=== PATIENT | male | born 1950 | race Caucasian/White ===

== ENCOUNTER 2017-12-19 14:44 | Emergency (ER) | payer MEDICARE, MEDICAID ==
--- OUTSIDE RECORDS SUMMARY | 2017-12-19 15:15 | XMS REPORT ---
:1950 External Reference #:[id number] Author Organization [facility] Address [address] [place] [address] Phone [phone] Care Team Providers Name Role Phone Elizabeth Mccormick M.D. Care Team Information Architect In Training Unavailable Elizabeth Mccormick M.D. Primary Care Physician Unavailable Payers Type Date Identification Numbers Payment Provider Subscriber Medicare Primary Policy Number: [id number] Medicare [facility] Roxana Mandeep PayID: [id number] [address] [place] [address] Medicaid Policy Number: [id number] [place] Roxana Mandeep PayID: [id number] [address] [facility] [place] [address] Problems Date Description Provider Status Onset: 11/26/2014 Benign essential hypertension Elizabeth Mccormick M.D. Active Onset: 01/20/2015 Cerebral palsy Elizabeth Mccormick M.D. Active Onset: 01/20/2015 Mental retardation Elizabeth Mccormick M.D. Active Onset: 01/20/2015 Hyperlipidemia Elizabeth Mccormick M.D. Active Onset: 01/20/2015 Osteoarthritis Elizabeth Mccormick M.D. Active Onset: 01/20/2015 H/O: Deep vein thrombosis Elizabeth Mccormick M.D. Active Note: RLE 2011 Onset: 11/26/2015 Essential hypertension Elizabeth Mccormick M.D. Active Onset: 01/09/2016 Subclinical hypothyroidism Elizabeth Mccormick M.D. Active Onset: 03/30/2016 Type 2 diabetes mellitus Elizabeth Mccormick M.D. Active Onset: 11/26/2014 Type II diabetes mellitus uncontrolled Elizabeth Mccormick M.D. Inactive Inactive: 11/22/2017 Onset: 11/26/2014 Anticoagulant Elizabeth Mccormick M.D. Resolved Resolved: 04/16/2015 Family History Date Family Member(s) Problem(s) Comments Father Unknown Mother Unknown lives in skilled nursing Social History Type Date Description Comments Occupation Disabled lives at [facility] Cigarette Use Never Smoked Cigarettes ETOH Use Occasional Smoking Patient has never smoked Allergies, Adverse Reactions, Alerts Date Description Reaction Status Severity Comments 11/26/2014 NKDA active Medications Medication Date Status Form Strength Qnty SIG Indications Ordering Provider Levothyroxine 11/30 Active Tablets 50mcg 30tab 1 by mouth E03.9 Elizabeth Sodium s every day [place], in in the M.D. morning Cyclobenzaprine 02/17 Active Tablets 5mg 60tab one tablet M25.512 Elizabeth HCL s by mouth [place], twice a M.D. day as needed pain in left shoulder/ arm [place]ay 02/17 Active Cream 10-15% 113gm apply M25.512 Lizbet Greaseless sparingly [place], to left [employer] shoulder as needed pain Ibuprofen 04/16 Active Tablets 200mg 2 po q6hrs prn [place], pain/infla M.D. mmation Bismatrol 04/16 Active Suspension 262mg/15M 236ml 10 L milliliter , s by mouth M.D. every 4 hours as needed for upset stomach or diarrhea Aspirin 04/16 Active Tablets 325mg 90tab 1 by mouth Z79.01 s every day [place], [employer] Diabetic in 03/06 Active Syrup 100mg/5ML 200un 1 teaspoon its by mouth [place], every 4 M.D. hours as needed Freestyle 01/29 Active Misc 1Box test every Elizabeth Lanctuesday [place], dx: M.D. 250.00, last visit 03/30/15 dx: e11.9 Freestyle Lite 04 Active Device 1unit test [facility] Blood Glucose s every [place], Monitoring tuesday [employer] System dx:250.00, last visit 01/21/15 Freestyle Lite 04 Active Strips 1Box test once Elizabeth Test a week on [place], tuesday M.D. last visit 05/24/17 dx:e11.9 Metformin HCL Active Tablets 500mg 180ta 1 by mouth bs twice a , day M.D. Glipizide Active Tablets 5mg 90tab 1 tab by s mouth [place], every day M.D. Lisinopril 00/00 Active Tablets 20mg 90tab 1 by mouth Elizabeth /0000 s every day Jeanna Mccormick Acetaminophen 00/00 Active Tablets 325mg 2 by mouth Unknown /0000 every 4 hours as needed for fever >100.8 Baclofen 00/00 Active Tablets 10mg 60tab take 1 Elizabeth /0000 s tablet by mumtaz Mccormick.DDelma twice a day Cane/Aluminum/Ad 06/25 Hx Misc 1unit use as E11.9 Elizabeth just/ s directed Melani Mccormick - Jeanna 03/02 Work Note 05/29 Hx clear to 807.01 return to [place], - work/day M.DDelma 11/2605/29/15 Hearing Test 12/17 Hx perform hearing [place], - evaluation M.DDelma 01/21 Coumadin /00 Hx Tablets 5mg 90tab 1 by mouth Elizabeth /0000 s every day Jaylen Mccormick M.D. 04/16 Hydrocodone-Acet 00 Hx Tablets 5-325mg 20tab 1 every Unknown aminophen /0000 s 4-6 hours - as needed 11/26 Celexa 00/00 Hx Tablets 20mg 15tab take 1 Anat /0000 s tablet by NICK Dean - mouth 02/16 other day Medications Administered in Office Medication Date Status Form Strength Qnty SIG Indications Ordering Provider TB Intradermal Administered Injection Elizabeth Mckeon 015 Jeanna Mccormick Immunizations CPT Code Status Date Vaccine Lot # [id number] Given 09/14/2017 Influenza Vac, Quadriv[place], [place] [id number] Given 05/24/2017 Pneumococcal Conjugate Vacc-13 [id number] Given 10/05/2016 Influenza Vac, Quadrivalent, Slit Virus, Im [id number] Given 09/13/2015 Influenza Vac, Quadrivalent, Slit Virus, Im [id number] Given 10/29/2011 Pneumococcal Immunization [id number] Given 05/28/2010 Tdap Tetanus, W Pertussis Vital Signs Date Vital Result Comment 11/30/2017 BP Systolic 142 mmHg BP Diastolic 76 mmHg Heart Rate 80 /min Respiratory Rate 16 /min Height 68.5 inches 5'8.50" Weight 230.00 lb BMI (Body Mass Index) 34.5 kg/m2 05/24/2017 BP Systolic 142 mmHg BP Diastolic 70 mmHg Heart Rate 96 /min Body Temperature 97.9 F Respiratory Rate 16 /min Height 68.5 inches 5'8.50" Weight 232.38 lb BMI (Body Mass Index) 34.8 kg/m2 04/21/2017 BP Systolic 130 mmHg BP Diastolic 84 mmHg Heart Rate 106 /min Body Temperature 96.6 F Height 68.5 inches 5'8.50" Weight 230.50 lb BMI (Body Mass Index) 34.5 kg/m2 02/17/2017 BP Systolic 150 mmHg BP Diastolic 88 mmHg Heart Rate 104 /min Body Temperature 97.7 F Height 68.5 inches 5'8.50" Weight 230.50 lb BMI (Body Mass Index) 34.5 kg/m2 10/05/2016 BP Systolic 130 mmHg BP Diastolic 80 mmHg Heart Rate 84 /min Body Temperature 98.2 F Respiratory Rate 20 /min Height 68.5 inches 5'8.50" Weight 228.00 lb BMI (Body Mass Index) 34.2 kg/m2 07/29/2016 BP Systolic 120 mmHg BP Diastolic 80 mmHg Heart Rate 84 /min Body Temperature 98.0 F Respiratory Rate 18 /min Height 68.5 inches 5'8.50" Weight 219.00 lb BMI (Body Mass Index) 32.8 kg/m2 05/03/2016 BP Systolic 124 mmHg BP Diastolic 80 mmHg Heart Rate 88 /min Body Temperature 97.9 F Respiratory Rate 16 /min Height 68.5 inches 5'8.50" Weight 219.00 lb BMI (Body Mass Index) 32.8 kg/m2 03/30/2016 BP Systolic 124 mmHg BP Diastolic 82 mmHg Heart Rate 96 /min Body Temperature 98.8 F Respiratory Rate 18 /min Height 68.5 inches 5'8.50" Weight 216.12 lb BMI (Body Mass Index) 32.4 kg/m2 03/02/2016 BP Systolic 120 mmHg BP Diastolic 60 mmHg Heart Rate 104 /min Body Temperature 97.7 F Height 68.5 inches 5'8.50" Weight 220.00 lb BMI (Body Mass Index) 33.0 kg/m2 11/26/2015 BP Systolic 128 mmHg BP Diastolic 74 mmHg Heart Rate 96 /min Body Temperature 97.7 F Respiratory Rate 16 /min Height 68.5 inches 5'8.50" Weight 222.12 lb BMI (Body Mass Index) 33.3 kg/m2 07/18/2015 BP Systolic 122 mmHg BP Diastolic 80 mmHg Heart Rate 68 /min Body Temperature 97.4 F Respiratory Rate 20 /min Height 68.5 inches 5'8.50" Weight 215.00 lb BMI (Body Mass Index) 32.2 kg/m2 05/29/2015 BP Systolic 128 mmHg BP Diastolic 68 mmHg Heart Rate 80 /min Body Temperature 97.6 F Respiratory Rate 16 /min Height 68.5 inches 5'8.50" Weight 217.00 lb BMI (Body Mass Index) 32.5 kg/m2 05/09/2015 BP Systolic 122 mmHg BP Diastolic 68 mmHg Heart Rate 80 /min Body Temperature 97.2 F Respiratory Rate 16 /min Height 68.5 inches 5'8.50" Weight 220.00 lb BMI (Body Mass Index) 33.0 kg/m2 04/16/2015 BP Systolic 118 mmHg BP Diastolic 64 mmHg Heart Rate 84 /min Body Temperature 97.2 F Respiratory Rate 16 /min Height 68.5 inches 5'8.50" Weight 221.25 lb BMI (Body Mass Index) 33.1 kg/m2 01/21/2015 BP Systolic 130 mmHg BP Diastolic 80 mmHg Heart Rate 76 /min Body Temperature 96.7 F Respiratory Rate 12 /min Height 68.5 inches 5'8.50" Weight 225.00 lb BMI (Body Mass Index) 33.7 kg/m2 11/26/2014 BP Systolic 130 mmHg BP Diastolic 90 mmHg Heart Rate 84 /min Body Temperature 98.1 F Respiratory Rate 12 /min Height 68.5 inches 5'8.50" Weight 233.00 lb BMI (Body Mass Index) 34.9 kg/m2 09/16/1997 BP Systolic 112 mmHg BP Diastolic 72 mmHg Body Temperature 97.0 F Weight 185.00 lb Results Test Date Test Result H/L Range Note Comprehensive Metabolic Prof 11/18/2017 Sodium 142 mEq/L 134-149 Potassium 4.4 mEq/L 3.6-5.5 Chloride 106 mEq/L 94-112 Carbon Dioxide 23 mEq/L 21-32 Glucose 168 mg/dL High 70-105 1 BUN 25 mg/dL 6-26 Creatinine 0.9 mg/dL 0.6-1.4 BUN/Creat Ratio 27.8 CALC 8.0-36.0 Calcium 9.6 mg/dL 8.6-10.2 Total Protein 7.9 g/dL 6.4-8.3 Albumin 4.6 g/dL 3.8-5.5 Globulin 3.3 g/dL 2.0-4.8 A/G Ratio 1.4 CALC 0.6-2.3 Alk. Phosphatase 64 U/L 22-95 Alt (SGPT) 26 U/L 7-35 Ast (Sgot) 21 U/L 5-34 Total Bilirubin 0.6 mg/dL 0.2-1.3 GFR Non- >60 ml/min/1.73m^ >=60 GFR >60 ml/min/1.73m^ >=60 Lipid Profile 11/18/2017 Cholesterol 175 mg/dL 120-200 Triglycerides 103 mg/dL 30-200 HDL Cholesterol 43 mg/dL 30-70 LDL (Calculated) 111 CALC 0-129 VLDL Cholesterol 21 mg/dL 0-50 HDL Risk Factor 4.1 CALC 0.0-4.4 Complete Blood Count 11/18/2017 WBC 7.1 x10^3/UL 3.6-9.6 RBC 4.41 x10^6/UL 3.90-5.70 HGB 13.7 g/dL 12.1-17.2 HCT 41 % 36-50 MCV 92.0 fL 82.2-97.4 MCH 31.1 pg 27.6-33.3 MCHC 33.9 g/dL 33.0-35.5 RDW 13.6 % 11.6-13.7 PLT 310 x10^3/UL 150-400 MPV 8.4 fL 7.4-10.4 Gran # 4.7 x10^3/UL 1.5-7.2 Lymph# 2.0 x10^3/UL 0.7-4.9 [place]# 0.4 x10^3/UL 0.1-0.9 Gran % 65.0 % 42.2-75.2 Lymph % 28.3 % 20.5-51.1 [place]% 6.7 % 1.7-9.3 Laboratory test finding 11/18/2017 Free T4 0.63 ng/dL Low 0.75-1.54 TSH 7.16 mIU/L High 0.50-6.00 Laboratory test finding 11/18/2017 Hemoglobin A1c (Fma) 6.9 % High 4.1- 5.7 Lipid Profile 09/28/2016 Triglycerides 177 mg/dL 2 (Trig/Chol/HDL) Cholesterol 172 mg/dL 3 HDL Cholesterol 40.1 mg/dL 4 LDL Cholesterol 97 mg/dL 5 Laboratory test finding 09/28/2016 TSH (Thyroid Stim 8.41 mcIU/mL High 0.34-5.60 6 Horm) Free T4 (Free Thyroxine) 0.67 ng/dL 0.61-1.12 7 Hemoglobin A1c (Glyco HGB) 6.6 % High Less than 6.0 8 Comp Metabolic Panel 09/28/2016 Sodium 134 mmol/L 133-145 Potassium 4.0 mmol/L 3.5-5.0 Chloride 100 mmol/L Low 101-111 Co2 Carbon Dioxide 29 mmol/L 22-32 Anion Gap 5 mmol/L 2-11 Glucose 127 mg/dL High 70-100 Blood Urea Nitrogen 22 mg/dL 6-24 Creatinine 1.14 mg/dL 0.67-1.17 BUN/Creatinine Ratio 19.3 8-20 Calcium 9.4 mg/dL 8.6-10.3 Total Protein 7.4 g/dL 6.4-8.9 Albumin 4.2 g/dL 3.2-5.2 Globulin 3.2 g/dL 2-4 Albumin/Globulin Ratio 1.3 1-3 Total Bilirubin 0.30 mg/dL 0.2-1.0 Alkaline Phosphatase 63 U/L 34-104 Alt 23 U/L 7-52 Ast 20 U/L 13-39 Egfr Non- 64.7 >60 Egfr 83.2 >60 9 Urine Microalbumin Random 09/28/2016 Urine Creatinine 123.06 mg/dL Ur Microalbumin (mg/L) < 15.0 mg/L Urine Microalbumin/Creatinine TNP ug/mg <31 10 CBC Auto Diff 09/28/2016 White Blood Count 9.3 10^3/uL 3.5-10.8 Red Blood Count 4.47 10^6/uL 4.0-5.4 Hemoglobin 13.6 g/dL Low 14.0-18.0 Hematocrit 41 % Low 42-52 Mean Corpuscular Volume 91 fL 80-94 Mean Corpuscular Hemoglobin 30 pg 27-31 Mean Corpuscular HGB Conc 34 g/dL 31-36 Red Cell Distribution Width 13 % 10.5-15 Platelet Count 279 10^3/uL 150-450 Mean Platelet Volume 9 um3 7.4-10.4 Abs Neutrophils 5.1 10^3/uL 1.5-7.7 Abs Lymphocytes 2.6 10^3/uL 1.0-4.8 Abs Monocytes 1.0 10^3/uL High 0-0.8 Abs Eosinophils 0.4 10^3/uL 0-0.6 Abs Basophils 0.1 10^3/uL 0-0.2 Abs Nucleated RBC 0 10^3/uL Granulocyte % 55.5 % 38-83 Lymphocyte % 28.2 % 25-47 Monocyte % 11.0 % High 1-9 Eosinophil % 4.5 % 0-6 Basophil % 0.8 % 0-2 Nucleated Red Blood Cells % 0 Laboratory test 04/06/2016 Surgical Pathology SEE RESULT BELOW 11 finding Laboratory test 03/24/2016 TSH (Thyroid Stim 4.00 ?IU/mL 0.34-5.60 finding Horm) CBC Electronic-ALL Lab 03/24/2016 White Blood Count 7.1 10^3/uL 3.5-10.8 [facility] Red Blood Count 4.49 10^6/uL 4.0-5.4 Hemoglobin 13.6 g/dL Low 14.0-18.0 Hematocrit 42 % 42-52 Mean Corpuscular Volume 94 fL 80-94 Mean Corpuscular Hemoglobin 30 pg 27-31 Mean Corpuscular HGB Conc 32 g/dL 31-36 Red Cell Distribution Width 13 % 10.5-15 Platelet Count 330 10^3/uL 150-450 Mean Platelet Volume 9 um3 7.4-10.4 Abs Neutrophils 3.2 10^3/uL 1.5-7.7 Abs Lymphocytes 2.5 10^3/uL 1.0-4.8 Abs Monocytes 0.7 10^3/uL 0-0.8 Abs Eosinophils 0.6 10^3/uL 0-0.6 Abs Basophils 0.1 10^3/uL 0-0.2 Abs Nucleated RBC 0 10^3/uL Granulocyte % 45.5 % 38-83 Lymphocyte % 34.4 % 25-47 Monocyte % 9.9 % High 1-9 Eosinophil % 8.9 % High 0-6 Basophil % 1.3 % 0-2 Nucleated Red Blood Cells % 0 Laboratory test 03/24/2016 Hemoglobin A1c 6.5 % High Less than 6.0 12 finding (Glyco HGB) Comp Metabolic-ALL 03/24/2016 Sodium 136 mmol/L 133-145 Lab [facility] Potassium 4.2 mmol/L 3.5-5.0 Chloride 101 mmol/L 101-111 Co2 Carbon Dioxide 28 mmol/L 22-32 Anion Gap 7 mmol/L 2-11 Glucose 129 mg/dL High 70-100 Blood Urea Nitrogen 21 mg/dL 6-24 Creatinine 1.04 mg/dL 0.67-1.17 BUN/Creatinine Ratio 20.2 High 8-20 Calcium 9.5 mg/dL 8.6-10.3 Total Protein 7.1 g/dL 6.4-8.9 Albumin 4.1 g/dL 3.2-5.2 Globulin 3.0 g/dL 2-4 Albumin/Globulin Ratio 1.4 1-3 Total Bilirubin 0.60 mg/dL 0.2-1.0 Alkaline Phosphatase 60 U/L 34-104 Alt 20 U/L 7-52 Ast 15 U/L 13-39 Egfr Non- 71.9 >60 Egfr 92.5 >60 13 Laboratory test 02/27/2016 Point of Care Glucose 142 mg/dL High 74-106 14 finding Laboratory test 02/27/2016 Urine Culture And SEE RESULT 15 finding Sensitivities BELOW Laboratory test 01/07/2016 TSH (Thyroid Stim 6.61 ?IU/mL High 0.34-5.60 finding Horm) Free T4 (Free Thyroxine) 0.66 ng/dL 0.61-1.12 Laboratory test 11/13/2015 TSH (Thyroid Stim Horm) 8.15 ?IU/mL High 0.34- 5.60 finding Lipid Panel-ALL Lab 11/13/2015 Triglycerides 89 mg/dL 16 Companies Cholesterol 167 mg/dL 17 HDL Cholesterol 37.6 mg/dL 18 LDL Cholesterol 112 mg/dL 19 Laboratory test 11/13/2015 Hemoglobin A1c 6.7 % High Less than 6.0 20 finding (Glyco HGB) Comp Metabolic-ALL 11/13/2015 Sodium 136 mmol/L 133-145 Lab [facility] Potassium 4.2 mmol/L 3.5-5.0 Chloride 102 mmol/L 101-111 Co2 Carbon Dioxide 28 mmol/L 22-32 Anion Gap 6 mmol/L 2-11 Glucose 98 mg/dL 70-100 Blood Urea Nitrogen 22 mg/dL 6-24 Creatinine 1.02 mg/dL 0.67-1.17 BUN/Creatinine Ratio 21.6 High 8-20 Calcium 9.3 mg/dL 8.6-10.3 Total Protein 7.4 g/dL 6.4-8.9 Albumin 4.3 g/dL 3.2-5.2 Globulin 3.1 g/dL 2-4 Albumin/Globulin Ratio 1.4 1-3 Total Bilirubin 0.40 mg/dL 0.2-1.0 Alkaline Phosphatase 70 U/L 34-104 Alt 18 U/L 7-52 Ast 16 U/L 13-39 Egfr Non- 73.8 >60 Egfr 94.9 >60 21 CBC Electronic-ALL Lab [facility] 11/13/2015 White Blood Count 7.4 10^3/uL 3.5-10.8 Red Blood Count 4.31 10^6/uL 4.0-5.4 Hemoglobin 13.6 g/dL Low 14.0-18.0 Hematocrit 42 % 42-52 Mean Corpuscular Volume 97 fL High 80-94 Mean Corpuscular Hemoglobin 32 pg High 27-31 Mean Corpuscular HGB Conc 33 g/dL 31-36 Red Cell Distribution Width 14 % 10.5-15 Platelet Count 289 10^3/uL 150-450 Mean Platelet Volume 9 um3 7.4-10.4 Abs Neutrophils 3.5 10^3/uL 1.5-7.7 Abs Lymphocytes 2.5 10^3/uL 1.0-4.8 Abs Monocytes 0.9 10^3/uL High 0-0.8 Abs Eosinophils 0.4 10^3/uL 0-0.6 Abs Basophils 0.1 10^3/uL 0-0.2 Abs Nucleated RBC 0.01 10^3/uL Granulocyte % 46.8 % 38-83 Lymphocyte % 34.3 % 25-47 Monocyte % 12.5 % High 1-9 Eosinophil % 5.2 % 0-6 Basophil % 1.2 % 0-2 Nucleated Red Blood Cells % 0.1 Comp Metabolic Panel 05/16/2015 Sodium 136 mmol/L 133-145 Potassium 4.0 mmol/L 3.5-5.0 Chloride 105 mmol/L 101-111 Co2 Carbon Dioxide 25 mmol/L 22-32 Anion Gap 6 mmol/L 2-11 Glucose 119 mg/dL High 70-100 Blood Urea Nitrogen 22 mg/dL 6-24 Creatinine 0.92 mg/dL 0.67-1.17 BUN/Creatinine Ratio 23.9 High 8-20 Calcium 9.4 mg/dL 8.6-10.3 Total Protein 7.5 g/dL 6.4-8.9 Albumin 4.2 g/dL 3.2-5.2 Globulin 3.3 g/dL 2-4 Albumin/Globulin Ratio 1.3 1-3 Total Bilirubin 0.40 mg/dL 0.2-1.0 Alkaline Phosphatase 54 U/L 34-104 Alt 26 U/L 7-52 Ast 20 U/L 13-39 Egfr Non- 83.1 >60 Egfr 106.9 >60 22 Laboratory test finding 05/16/2015 Inr 0.95 0.78-1.07 CBC Electronic-ALL Lab 12/31/2014 White Blood Count 6.5 10^3/uL 4.8-10.8 23 [facility] Red Blood Count 4.25 10^6/uL 4.0-5.4 23 Hemoglobin 13.6 g/dL Low 14.0-18.0 23 Hematocrit 40 % Low 42-52 23 Mean Corpuscular Volume 94 fL 80-94 23 Mean Corpuscular Hemoglobin 32 pg High 27-31 23 Mean Corpuscular HGB Conc 34 g/dL 31-36 23 Red Cell Distribution Width 13 % 10.5-15 23 Platelet Count 249 10^3/uL 150-450 23 Mean Platelet Volume 10 um3 7.4-10.4 23 Abs Neutrophils 3.0 10^3/uL 1.5-7.7 23 Abs Lymphocytes 2.2 10^3/uL 1.0-4.8 23 Abs Monocytes 0.8 10^3/uL 0-0.8 23 Abs Eosinophils 0.4 10^3/uL 0-0.6 23 Abs Basophils 0.1 10^3/uL 0-0.2 23 Abs Nucleated RBC 0 10^3/uL 23 Granulocyte % 46.0 % 38-83 23 Lymphocyte % 34.0 % 25-47 23 Monocyte % 12.7 % High 1-9 23 Eosinophil % 6.3 % High 0-6 23 Basophil % 1.0 % 0-2 23 Nucleated Red Blood Cells % 0.1 23 Laboratory test finding 12/31/2014 Inr 1.84 High 0.78-1.07 23, 24 Comp Metabolic-ALL Lab [facility] 12/31/2014 Sodium 136 mmol/L 133-145 23 Potassium 4.1 mmol/L 3.5-5.0 23 Chloride 106 mmol/L 101-111 23 Co2 Carbon Dioxide 26 mmol/L 22-32 23 Anion Gap 4 mmol/L 2-11 23 Glucose 104 mg/dL High 70-100 23 Blood Urea Nitrogen 15 mg/dL 6-24 23 Creatinine 0.92 mg/dL 0.67-1.17 23 BUN/Creatinine Ratio 16.3 8-20 23 Calcium 9.2 mg/dL 8.6-10.3 23 Total Protein 7.2 g/dL 6.4-8.9 23 Albumin 4.2 g/dL 3.2-5.2 23 Globulin 3.0 g/dL 2-4 23 Albumin/Globulin Ratio 1.4 1-3 23 Total Bilirubin 0.50 mg/dL 0.2-1.0 23 Alkaline Phosphatase 53 U/L 34-104 23 Alt 26 U/L 7-52 23 Ast 20 U/L 13-39 23 Egfr Non- 83.4 >60 23 Egfr 107.2 >60 23, 25 Lipid Panel-ALL [facility] 12/31/2014 Triglycerides 141 mg/dL 23, 26 Cholesterol 170 mg/dL 23, 27 HDL Cholesterol 34.3 mg/dL 23, 28 LDL Cholesterol 108 mg/dL 23, 29 Laboratory test finding 12/31/2014 Hemoglobin A1c 6.3 % High Less than 6.0 23, 30 TSH (Thyroid Stimulating Horm) 4.87 IU/mL 0.34-5.60 23, 31 Ua - Non Micro (CMC) 07/20/1999 Appearance CLEAR SP Grav 1.018 1.010-1.030 Esterase NEGATIVE Negative Nitrite NEGATIVE Negative Urobil NEGATIVE Negative Protein NEGATIVE Negative PH 7.0 5-9 Blood NEGATIVE Negative Ketones NEGATIVE Negative Bilirubin, Micro NEGATIVE Negative Glucose NEGATIVE Negative 1 consistent w/ previous results 2 Desirable <150 Borderline high 150-199 High 200-499 Very High >500 3 Desirable <200 Borderline high 200-239 High >239 4 Low <40 Desirable: 40-60 High: >60 5 Desirable: <100 mg/dL Near Optimal: 100-129 mg/dL Borderline High: 130-159 mg/dL High: 160-189 mg/dL Very High: >189 mg/dL 6 FASTING 7 FASTING 8 Therapeutic target for the treatment of diabetes Mellitus patients is <7% HBA1C, and in selective patients <6.0%.Please refer to [place] [employer] Association Diabetic care guidelines for further information. 9 Because ethnic data is not always readily available, this report includes an eGFR for both -Americans and non- Americans. The National Kidney Disease Education Program (NKDEP) does not endorse the use of the MDRD equation for patients that are not between the ages of 18 and 70, are , have extremes of body size, muscle mass, or nutritional status, or are non- or non-. According to the National Kidney Foundation, irrespective of diagnosis, the stage of the disease is based on the level of kidney function: Stage Description GFR(mL/min/1.73 m(2)) 1 Kidney damage with normal or decreased GFR 90 2 Kidney damage with mild decrease in GFR 60-89 3 Moderate decrease in GFR 30-59 4 Severe decrease in GFR 15-29 5 Kidney failure <15 (or dialysis) 10 Unable to calculate due to low microalbumin 11 SEE RESULT BELOW Name: MANDEEPROXANA Rigoberto : [address]: Ga Peacock MD Acct: [id number] Unit: [id number] AGE: 66 Location: [facility] Re04/06/16 SEX: M Status: REG REF SPEC: [id number] DELFINO: 04/06/16-1253 [facility] DR: Ga Peacock MD REQ: [id number] RECD: 04/06/16 STATUS: JLUIS CABRERA DR: Elizabeth Mccormick MD _ ORDERED: LEVEL IV/3 FINAL DIAGNOSIS 1. Colon, right, biopsy: -- Large intestinal mucosa with no significant pathologic abnormality. -- No evidence of microscopic/lymphocytic colitis, collagenous colitis or other chronic inflammatory bowel process identified. 2. Colon, left, biopsy: -- Large intestinal mucosa with mild architectural disorder suggestive of repair. -- No active colitis or other chronic inflammatory bowel process identified. -- No adenomatous change noted. 3. Colon, rectum at 12 cm, biopsy: -- Tubular adenoma. -- No high grade dysplasia or malignancy. CLINICAL HISTORY No history given POST-OPERATIVE DIAGNOSIS Colonoscopy to cecum with ease - 1-2+ sigmoid diverticulosis; increased haustral changes, all negative except in rectum. Conclusions/Plan: Mild diverticulosis, rectal polyp - fulgurated; follow-up to be determined GROSS DESCRIPTION 1. The specimen is received in formalin labeled, Biopsy Right Colon, and consists of two zavala-white irregular to polypoid soft tissue fragments measuring 0.2 x 0.2 x 0.1 cm and 0.6 x 0.2 x 0.1 cm, which are entirely submitted in one cassette. CONTINUED ON NEXT PAGE * ML=Testing performed at Main Lab DEPARTMENT OF PATHOLOGY, [address] [place] [address] Hari Perez M.D. Director [facility] # [id number] RUN DATE: 04/07/16 [facility] LAB LIVE PAGE 2 Patient: ROXANA GIANG [id number] (Continued) GROSS DESCRIPTION (Continued) GROSS DESCRIPTION (Continued) 2. The specimen is received in formalin labeled, Biopsy Left Colon, and consists of two zavala-white irregular to polypoid soft tissue fragments measuring 0.3 x 0.3 x 0.2 cm and 0.5 x 0.2 x 0.1 cm, which are entirely submitted in one cassette. 3. The specimen is received in formalin labeled, Rectal Polyp at 12 cm, and consists of a 0.9 x 0.6 x 0.3 cm aggregate of zavala-brown irregular to polypoid soft tissue fragments, which is entirely submitted in one cassette. Signed (signature on file) Hari Perez MD [id number] END OF REPORT * ML=Testing performed at Main Lab DEPARTMENT OF PATHOLOGY, [address] [place] [address] Hari Perez M.D. Director [facility] # [id number] 12 Therapeutic target for the treatment of diabetes Mellitus patients is <7% HBA1C, and in selective patients <6.0%.Please refer to [place] [employer] Association Diabetic care guidelines for further information. 13 Because ethnic data is not always readily available, this report includes an eGFR for both -Americans and non- Americans. The National Kidney Disease Education Program (NKDEP) does not endorse the use of the MDRD equation for patients that are not between the ages of 18 and 70, are , have extremes of body size, muscle mass, or nutritional status, or are non- or non-. According to the National Kidney Foundation, irrespective of diagnosis, the stage of the disease is based on the level of kidney function: Stage Description GFR(mL/min/1.73 m(2)) 1 Kidney damage with normal or decreased GFR 90 2 Kidney damage with mild decrease in GFR 60-89 3 Moderate decrease in GFR 30-59 4 Severe decrease in GFR 15-29 5 Kidney failure <15 (or dialysis) 14 [employer] Director: [id number] FRANKLIN SORENSON 15 SEE RESULT BELOW Name: ROXANA GIANG : [address]: Triston Gallego MD Acct: [id number] Unit: [id number] AGE: 66 Location: [facility] Re02/27/16 SEX: M Status: DEP ER SPEC: [id number] DELFINO: 02/27/16-[address]: Triston Gallego MD REQ: [id number] RECD: 02/27/16182 STATUS: COMP [facility] DR: Elizabeth Mccormick MD _ SOURCE: URINE SPDESC: ORDERED: Urine Culture Procedure Result Reported Site Urine Culture Final 02/28/16- 1552 ML No growth of clinically significant organisms * ML - MAIN LAB (PSC1) . END OF REPORT * ML=Testing performed at Main Lab DEPARTMENT OF PATHOLOGY, [address] [place] [address] Hari Perez M.D. Director [facility] # [id number] 16 Desirable <150 Borderline high 150-199 High 200-499 Very High >500 17 Desirable <200 Borderline high 200-239 High >239 18 Low <40 Desirable: 40-60 High: >60 19 Desirable: <100 mg/dL Near Optimal: 100-129 mg/dL Borderline High: 130-159 mg/dL High: 160-189 mg/dL Very High: >189 mg/dL 20 Therapeutic target for the treatment of diabetes Mellitus patients is <7% HBA1C, and in selective patients <6.0%.Please refer to [place] [employer] Diabetic care guidelines for further information. 21 Because ethnic data is not always readily available, this report includes an eGFR for both -Americans and non- Americans. The National Kidney Disease Education Program (NKDEP) does not endorse the use of the MDRD equation for patients that are not between the ages of 18 and 70, are , have extremes of body size, muscle mass, or nutritional status, or are non- or non-. According to the National Kidney Foundation, irrespective of diagnosis, the stage of the disease is based on the level of kidney function: Stage Description GFR(mL/min/1.73 m(2)) 1 Kidney damage with normal or decreased GFR 90 2 Kidney damage with mild decrease in GFR 60-89 3 Moderate decrease in GFR 30-59 4 Severe decrease in GFR 15-29 5 Kidney failure <15 (or dialysis) 22 Because ethnic data is not always readily available, this report includes an eGFR for both -Americans and non- Americans. The National Kidney Disease Education Program (NKDEP) does not endorse the use of the MDRD equation for patients that are not between the ages of 18 and 70, are , have extremes of body size, muscle mass, or nutritional status, or are non- or non-. According to the National Kidney Foundation, irrespective of diagnosis, the stage of the disease is based on the level of kidney function: Stage Description GFR(mL/min/1.73 m(2)) 1 Kidney damage with normal or decreased GFR 90 2 Kidney damage with mild decrease in GFR 60-89 3 Moderate decrease in GFR 30-59 4 Severe decrease in GFR 15-29 5 Kidney failure <15 (or dialysis) 23 FASTING 24 Please note: Effective December 25, 2014, the reference value for this test has changed due to the validation and activation of a new reagent lot number. 25 Because ethnic data is not always readily available, this report includes an eGFR for both -Americans and non- Americans. The National Kidney Disease Education Program (NKDEP) does not endorse the use of the MDRD equation for patients that are not between the ages of 18 and 70, are , have extremes of body size, muscle mass, or nutritional status, or are non- or non-. According to the National Kidney Foundation, irrespective of diagnosis, the stage of the disease is based on the level of kidney function: Stage Description GFR(mL/min/1.73 m(2)) 1 Kidney damage with normal or decreased GFR 90 2 Kidney damage with mild decrease in GFR 60-89 3 Moderate decrease in GFR 30-59 4 Severe decrease in GFR 15-29 5 Kidney failure <15 (or dialysis) 26 Desirable <150 Borderline high 150-199 High 200-499 Very High >500 27 Desirable <200 Borderline high 200-239 High >239 28 Low <40 Desirable: 40-60 High: >60 29 Desirable <100 Near Optimal 100-129 Borderline high 130-159 High 160-189 Very High >189 30 Therapeutic target for the treatment of diabetes Mellitus patients is <7% HBA1C, and in selective patients <6.0%.Please refer to [place] [employer] Diabetic care guidelines for further information. 31 FASTING Procedures Date CPT Code Description Status 04/06/2016 Colonoscopy Completed 06/16/1990 06164 Est Pat Office Comprhensive Completed Encounters Type Date Location Provider CPT E/M Dx Office Visit 04/21/2017 10:15a Main Office SHAUN Hinson 56116 M25.512 M79.602 Office Visit 02/17/2017 10:45a Main Office SHAUN Hinson 76010 M25.512 M79.602 I10 E11.9 Office Visit 10/05/2016 8:00a Main Office Elizabeth Mccormick M.D. 17837 I10 E11.9 E07.89 G80.9 Z23 Office Visit 07/29/2016 11:30a [place] [address] M79.641 Office Visit 05/03/2016 4:30p [place] [address] S50.00xA S80.02xA W01.198A Office Visit 03/02/2016 2:20p Main Office Elizabeth Mccormick M.D. 81783 K52.9 E11.65 I10 Office Visit 11/26/2015 10:20a [facility] Elizabeth Mccormick M.D. 55144 I10 E11.65 E07.89 Z12.11 Office Visit 07/18/2015 11:00a [place] [address] 719.48 Office Visit 05/29/2015 5:00p Main Office Elizabeth Mccormick M.D. 46811 401.1 250.02 807.01 Office Visit 05/09/2015 10:45a [place] [address] 924.20 Office Visit 04/16/2015 1:00p [facility] Office Elizabeth Mccormick M.D. 90334 891.0 E885.9 401.1 V58.61 Office Visit 01/24/2015 10:15a Main Office Elizabeth Mccormick M.D. 74451 V74.1 Office Visit 01/21/2015 9:40a Main Office Elizabeth Mccormick M.D. 07271 250.02 401.1 V58.61 V74.1 525.13 Office Visit 11/26/2014 3:50p Main Office Elizabeth Mccormick M.D. 77666 250.02 401.1 V58.61 724.2 Plan of Care Future Appointment(s):01/13/2018 9:00 am - Elizabeth Mccormick M.D. at [facility] Tuxztj1911/30/2017 - Elizabeth Mccormick M.D.E11.9 Type 2 diabetes mellitus without complicationsNew Labs:Hemoglobin A1c ([facility])TSH ([facility])Free T4 ([facility]/ [facility])Comments:Recommend yearly diabetic eye and foot exams, and check on blood pressure periodically. Goal blood sugar is less than 140 in the morning or A1c less than 7. Increase glipizide to 1 full tab dailyFollow up:6 moI10 Essential (primary) hypertensionComments:The patient will continue to monitor blood pressure and let me know the blood pressure results if there are readings persistently above 140/80. Goal blood pressure is less than 140/80. Recommend low salt/cardiac diet and routine exercise.G80.9 Cerebral palsy, unspecifiedComments[facility] Hypothyroidism, unspecifiedNew Medication:Levothyroxine Sodium 50 mcgNew Labs:TSH ([facility])Free T4 ([facility] /[facility])Comments:start medication in morning before other medicationsFollow up: labs in 6 weeksAllComments:~B_~U_Medication Management~b_~u_ Patient Understands medications he's taking? Yes No Are there Barriers to Adherence? Yes No Has the patient been asked about herbal supplements and therapies, and OTC meds? Yes No
--- NOTE | 2017-12-19 17:17 | ED ---
Throat Pain/Nasal Congestion - HPI Summary HPI Summary: Pt here w/ choking episode earlier today. He resides as [facility]. Staff reports she noticed pt was more quiet than usual and as she looked up at him from her paperwork, he was red in the face and gagging. She "smacked" pt's back and hewas able to expel the pasta he was eating/choking on via coughing in his own. Has had sips of water since and denies pain, dysphagia, chest pain, trouble breathing or SOB. No weakness, numbness or tingling and no previous h/o CVA. He is here at staff reports it's their companies policy to f/u when things like this happen. - History of Current Complaint Chief Complaint: EDGeneral Time Seen by Provider: 12/19/17 15:39 Hx Obtained From: Patient, Family/Cellular Biologist - staff from [facility] - Allergies/Home Medications Allergies/Adverse Reactions: Allergies Allergy/AdvReac Type Severity Reaction Status Date / Time No Known Allergies Allergy Verified 05/26/16 20:25 PMH/Surg Hx/FS Hx/Imm Hx Previously Healthy: Yes Endocrine/Hematology History: Reports: Hx Diabetes - type II Denies: Hx Anticoagulant Therapy, Hx Thyroid Disease Cardiovascular History: Reports: Hx Hypertension Denies: Hx Congestive Heart Failure, Hx Deep Vein Thrombosis, Hx Myocardial Infarction, Hx Pacemaker/ICD Respiratory History: Denies: Hx Asthma, Hx Chronic Obstructive Pulmonary Disease (COPD), Hx Lung Cancer, Hx Pneumonia, Hx Pulmonary Embolism GI History: Denies: Hx Gall Bladder Disease, Hx Gastrointestinal Bleed, Hx Ulcer, Hx Urosepsis History: Denies: Hx Kidney Stones, Hx Renal Disease Neurological History: Denies: Hx CVA, Hx Dementia, Hx Migraine, Hx Seizures, Hx Transient Ischemic Attacks (TIA) Psychiatric History: Reports: Hx Depression - Surgical History Surgery Procedure, Year, and Place: Right Hip Surgery. Right Ankle Surgery Infectious Disease History: No Infectious Disease History: Denies: History Other Infectious Disease, Traveled Outside the [place] in Last 30 Days - Family History Known Family History: Positive: None Negative: Renal Disease, Blood Disorder - Social History Occupation: Disabled Lives: Assisted Alcohol Use: Occasionally - "1 beer here and there" Hx Substance Use: No Substance Use Type: Reports: None Hx Tobacco Use: No Smoking Status (MU): Never Smoked Tobacco Review of Systems Constitutional: Negative Negative: Fever, Chills, Fatigue Eyes: Negative ENT: Negative Negative: Sore Throat Cardiovascular: Negative Respiratory: Negative Gastrointestinal: Negative Positive: no symptoms reported Musculoskeletal: Negative Neurological: Negative Psychological: Normal All Other Systems Reviewed And Are Negative: Yes Physical Exam Triage Information Reviewed: Yes Vital Signs On Initial Exam: Initial Vitals Temp Pulse Resp BP Pulse Ox 97.6 F 102 20 127/73 94 12/19/17 14:54 12/19/17 14:54 12/19/17 14:54 12/19/17 14:54 12/19/17 14:54 Vital Signs Reviewed: Yes Appearance: Positive: Well-Appearing, No Pain Distress, Well-Nourished - pt lying in reclined position on stretcher chatting w/ staff upon entrance - he appears comfortable and pleasant Skin: Positive: Warm, Skin Color Reflects Adequate Perfusion Head/Face: Positive: Normal Head/Face Inspection Eyes: Positive: Other: - wearing glasses ENT: Positive: Hearing grossly normal, Pharynx normal - mucosa moist - no signs of trauma, Other - speaking full sentences w/o difficulty. Negative: Trismus, Muffled voice, Hoarse voice Neck: Positive: Supple, Nontender Respiratory/Lung Sounds: Positive: Clear to Auscultation, Breath Sounds Present , Other - equal chest rise. Negative: Stridor, Wheezes Cardiovascular: Positive: Normal, RRR, Pulses are Symmetrical in both Upper and Lower Extremities Abdomen Description: Positive: Nontender, Soft Bowel Sounds: Positive: Present Musculoskeletal: Positive: Normal, Strength/ROM Intact Neurological: Positive: Normal, Sensory/Motor Intact, Alert, Oriented to Person Place, Time, CN Intact II-III, Facial Symmetry, Speech Normal, Other - appears to have developmental delay - otherwise unremarkable for focal weakness. Negative: Pronator Drift Present Psychiatric: Positive: Normal - calm, coopertive Procedures - Procedure Summary Procedure Summary: Tolerates PO fluids well Diagnostics - Vital Signs Vital Signs Temp Pulse Resp BP Pulse Ox 12/19/17 14:54 97.6 F 102 20 127/73 94 - Laboratory Lab Statement: Any lab studies that have been ordered have been reviewed, and results considered in the medical decision making process. EENT Course/Dx - Course Course Of Treatment: Discussed w/ Dr. Saba. Since pt is not having pain or airway concerns at this time, PO challenged him successfully. Okay to d/c w/o further w/u. Discussed prevention education w/ pt and staff as well as danger ssx of when to return to ED. Paperwork completed for [facility] - Diagnoses Provider Diagnoses: Choking Discharge - Discharge Plan Condition: Stable Disposition: HOME Patient Education Materials: Foreign Body Ingestion (ED) Referrals: Elizabeth Mccormick MD [Primary Care Provider] - Additional Instructions: Take small bites, chew your food well and eat slowly. If food or throat are dry , drink fluids to moisten mouth and throat. *If you develop throat pain, tightness, swelling sensation, trouble breathing or swallowing, chest pain, cough or fever, shortness of breath, numbness, tingling, weakness, facial droop, return to ED
[2017-12-19 17:34] VITALS: BP 134/71
== END 2017-12-19 17:33 | disposition home or self-care (01) ==
LOC: ED 14:44
DX: N39.0 Urinary tract infection, site not specified (principal); R10.84 Generalized abdominal pain
CPT/HCPCS: 99282

== ENCOUNTER 2019-01-07 15:43 | Emergency (ER) | payer MEDICARE, MEDICAID ==
--- NOTE | 2019-01-07 16:24 | UC ---
Hand/Wrist HPI - HPI Summary HPI Summary: PATIENT IS A RESIDENT AT [facility]. HE FELL EARLIER TODAY AND LANDED ON HIS LEFT HAND. LEFT 3RD FINGER IS DEFORMED AND PATIENT HAS TENDERNESS TO PALPATION OVER LEFT 3RD, 4TH AND 5TH FINGERS. - History Of Current Complaint Chief Complaint: UCUpperExtremity Stated Complaint: FINGER INJURY Time Seen by Provider: 01/07/19 16:09 Hx Obtained From: Patient Onset/Duration: Sudden Onset, Lasting Hours, Still Present Severity Initially: Moderate Severity Currently: Moderate Pain Intensity: 8 Pain Scale Used: 0-10 Numeric Character Of Pain: Sharp Aggravating Factor(s): Movement Alleviating Factor(s): Rest, Ice Related History: Dominant Hand Left - Allergies/Home Medications Allergies/Adverse Reactions: Allergies Allergy/AdvReac Type Severity Reaction Status Date / Time No Known Allergies Allergy Verified 01/07/19 16:06 Home Medications: Home Medications Levothyroxine TAB* [Synthroid TAB*] 1 tab PO DAILY 01/07/19 [History Confirmed 01/07/19] PMH/Surg Hx/FS Hx/Imm Hx Endocrine History: Diabetes, Hypothyroidism Cardiovascular History: Hypertension Other History Of: Negative For: HIV, Hepatitis B, Hepatitis C, Anticoagulant Therapy - Surgical History Surgical History: Yes Surgery Procedure, Year, and Place: Right Hip Surgery. Right Ankle Surgery - Family History Known Family History: Positive: None Negative: Renal Disease, Blood Disorder - Social History Alcohol Use: Occasionally Substance Use Type: None Smoking Status (MU): Former Smoker Household Exposure Type: Cigarettes - Immunization History Most Recent Influenza Vaccination: 2014 Most Recent Tetanus Shot: up to date Most Recent Pneumonia Vaccination: has not had Review of Systems All Other Systems Reviewed And Are Negative: Yes Constitutional: Positive: Negative Skin: Positive: Other - ABRASION 4TH FINGER Respiratory: Positive: Negative Cardiovascular: Positive: Negative Gastrointestinal: Positive: Negative Musculoskeletal: Positive: Arthralgia, Decreased ROM - LEFT 3RD-5TH FINGERS, Other: - LEFT 3RD FINGER DEFORMITY Physical Exam Triage Information Reviewed: Yes Appearance: Well-Appearing, No Pain Distress, Well-Nourished Vital Signs: Initial Vital Signs Temp 98.3 F 01/07/19 16:03 Pulse 99 01/07/19 16:03 Resp 16 01/07/19 16:03 BP 146/96 01/07/19 16:03 Pulse Ox 98 01/07/19 16:03 Vital Signs Reviewed: Yes Eyes: Positive: Conjunctiva Clear ENT: Positive: Hearing grossly normal Neck: Positive: Supple Respiratory: Positive: No respiratory distress, No accessory muscle use Cardiovascular: Positive: Pulses Normal Abdomen Description: Positive: Soft Musculoskeletal: Positive: No Edema, ROM Limited @ - LEFT HAND 3RD-5TH FINGERS, Other: - TTP LEFT 3RD-5TH FINGERS. LEFT 3RD FINGER DEVIATED LATERALLY AT PIP Neurological: Positive: Alert Psychological: Positive: Age Appropriate Behavior Skin: Negative: Rashes Diagnostics - Radiology LEFT HAND XRAYS Radiology Interpretation Completed By: Radiologist Summary of Radiographic Findings: DISLOCATION OF THE PROXIMAL INTERPHALANGEAL JOINT OF THE THIRD FINGER AND SMALL FRACTURE FRAGMENT Hand/Wrist Course/Dx - Course Course Of Treatment: RADIOLOGY REPORTS A 3MM FRACTURE FRAGMENT PROJECTING ADJACENT TO THE ANTERIOR LATERAL ASPECT OF THE PROXIMAL PHALANX IN ADDITION TO THE POSTERIORLY DISPLACED MIDDLE PHALANX OF THE LEFT 3RD FINGER. I SPOKE WITH DR. WONG (ORTHOPEDICS) WHO ADVISED I REDUCE IT HERE IN THE AND HAVE PT CALL TOMORROW FOR A F/U APPT. FINGER REDUCTION AFTER DIGITAL BLOCK WAS SUCCESSFUL. RADIOLOGY READ OF POST REDUCTION FILMS PENDING. FINGER SPLINT APPLIED. PT TO CALL [facility]TH[facility]. - Differential Dx/Diagnosis Provider Diagnosis: Dislocation of left middle finger, Abrasion of finger of left hand Discharge - Sign-Out/Discharge Documenting (check all that apply): Patient Departure All imaging exams completed and their final reports reviewed: No - Discharge Plan Condition: Stable Disposition: HOME Patient Education Materials: Finger Dislocation (ED), Abrasion (ED) Referrals: Elizabeth Mccormick MD [Primary Care Provider] - If Needed Ezequiel Wong MD [Medical Doctor] - 3 Days Additional Instructions: YOU DISLOCATED YOUR LEFT THIRD FINGER TODAY. WE SUCCESSFULLY REDUCED IT HERE IN THE . RADIOLOGY REPORTS A SMALL FRACTURE FRAGMENT AT THE AREA OF DISLOCATION. CALL ORTHOPEDICS TOMORROW MORNING FOR FOLLOW-UP APPOINTMENT THIS WEEK. KEEP THE SPLINT ON TO HELP WITH STABILITY. ORTHOPEDICS WILL PROVIDE FURTHER DIRECTION ON HOW LONG YOU WILL NEED TO BE SPLINTED. IBUPROFEN NEEDED FOR DISCOMFORT. REST, ICE, ELEVATE. GIVEN THE SMALL ABRASION ON YOUR 4TH FINGER WE HAVE BOOSTED YOU WITH TDAP. TETANUS IMMUNIZATION GIVEN (TDAP): You have been given an immunization against tetanus. Please record this in your records. In general, a booster is needed only once every 10 years. The tetanus shot protects against tetanus or "lockjaw," which is a complication of certain wound infections (the tetanus shot cannot protect against the actual infection). The immunization site may become warm and red due to local reaction. If this occurs, apply warm compresses and take aspirin or ibuprofen to reduce inflammation and discomfort. Return for evaluation if the reaction becomes severe. - Billing Disposition and Condition Condition: STABLE Disposition: Home
[2019-01-07] MEDS ORDERED: Ibuprofen TAB* 600 MG PO ONE (17:26)
[2019-01-07] MEDS ORDERED: Lidocaine 1%* 5 ML VIAL INJ ONE (17:41)
[2019-01-07] MEDS ORDERED: Tetan/Diph/Pertus SYR(Tdap)* 0.5 ML SYR(BOOSTRIX) use SYR IM ONE (18:51)
[2019-01-07 19:15] VITALS: BP 132/79
--- NOTE | 2019-01-08 19:15 | UC ---
- Progress Note Progress Note: Radiologist reading of left hand and left third finger x-rays from January 07, 2019 show a dislocation with avulsion fracture in the left middle finger on the initial x-ray and then subsequent reduction of the finger on the finger x-ray. Provider the same date had the same interpretation therefore there is no discrepancy. Course/Dx - Diagnoses Provider Diagnoses: Dislocation of left middle finger, Abrasion of finger of left hand Discharge - Sign-Out/Discharge Documenting (check all that apply): Patient Departure All imaging exams completed and their final reports reviewed: Yes - Discharge Plan Condition: Stable Disposition: HOME Patient Education Materials: Finger Dislocation (ED), Abrasion (ED) Referrals: Elizabeth Mccormick MD [Primary Care Provider] - If Needed Ezequiel Thorpe MD [Medical Doctor] - 3 Days Additional Instructions: YOU DISLOCATED YOUR LEFT THIRD FINGER TODAY. WE SUCCESSFULLY REDUCED IT HERE IN THE UC. RADIOLOGY REPORTS A SMALL FRACTURE FRAGMENT AT THE AREA OF DISLOCATION. CALL ORTHOPEDICS TOMORROW MORNING FOR FOLLOW-UP APPOINTMENT THIS WEEK. KEEP THE SPLINT ON TO HELP WITH STABILITY. ORTHOPEDICS WILL PROVIDE FURTHER DIRECTION ON HOW LONG YOU WILL NEED TO BE SPLINTED. IBUPROFEN NEEDED FOR DISCOMFORT. REST, ICE, ELEVATE. GIVEN THE SMALL ABRASION ON YOUR 4TH FINGER WE HAVE BOOSTED YOU WITH TDAP. TETANUS IMMUNIZATION GIVEN (TDAP): You have been given an immunization against tetanus. Please record this in your records. In general, a booster is needed only once every 10 years. The tetanus shot protects against tetanus or "lockjaw," which is a complication of certain wound infections (the tetanus shot cannot protect against the actual infection). The immunization site may become warm and red due to local reaction. If this occurs, apply warm compresses and take aspirin or ibuprofen to reduce inflammation and discomfort. Return for evaluation if the reaction becomes severe. - Billing Disposition and Condition Condition: STABLE Disposition: Home
== END 2019-01-07 19:05 | disposition home or self-care (01) ==
LOC: UCEAST 15:43
DX: S63.283A Dislocation of proximal interphalangeal joint of left middle finger, initial encounter (principal); S60.413A Abrasion of left middle finger, initial encounter; W19.XXXA Unspecified fall, initial encounter; Y92.9 Unspecified place or not applicable; I10 Essential (primary) hypertension; E03.9 Hypothyroidism, unspecified; Z79.899 Other long term (current) drug therapy; Z87.891 Personal history of nicotine dependence
CPT/HCPCS: 26775; 73140; 90471; 90715; 99213; A9270-GY; G0463